=== PATIENT | female | born 1995 | race African-American/Black ===

== ENCOUNTER 2018-09-15 09:49 | Emergency (ER) | payer SELFPAY ==
[~2018-09-15] VITALS: Ht 157.5 cm; Wt 68.0 kg
[2018-09-15 10:16] VITALS: BP 137/88
[2018-09-15 10:19] LABS: BILIRUBIN,URINE NEGATIVE (NEG); CLARITY,URINE CLEAR; COLOR,URINE YELLOW; NITRITE,URINE NEGATIVE (NEG); PH,URINE 7.5; PROTEIN,URINE NEGATIVE (NEG-TRACE)
[2018-09-15 10:26] LABS: BARBITURATES NEG (NEG); BENZODIAZEPINES NEG (NEG); CANNABINOIDS POS (NEG); COCAINE NEG (NEG); METHADONE NEG (NEG); OPIATES NEG (NEG); PHENCYCLIDINE NEG (NEG)
[2018-09-15 10:31] LABS: BACTERIA,URINE MODERATE /HPF (0-FEW); RBC,URINE TNTC /HPF (0-2); SQUAMOUS EPITHELIAL CELL,UR MANY /LPF
[2018-09-15 10:37] LABS: AMPHETAMINE/METHAMPHETAMINE NEG (NEG)
--- NOTE | 2018-09-15 10:37 | PHYS DOC ---
Past Medical History Past Medical History: No Pertinent History Past Surgical History: Other Additional Past Surgical Histo: LEFT KNEE Alcohol Use: Rarely Drug Use: Marijuana Adult General Chief Complaint Chief Complaint: SUICDAL IDEATION [facility] HPI Patient is a 23-year-old female who presents with complaint of suicidal thoughts for the last couple of days. Patient indicates that she has been thinking about flipping her car to take her life. Patient does admit to history of suicide attempt having taken allergy pills in the past. Patient states that she has had a lot of stress in her family recently which is what she believes the cause of her symptoms are. Patient states that she has not done anything to harm herself at this point. She denies any chest pain or shortness of breath. She also denies any abdominal pain, nausea or vomiting. Review of Systems Review of Systems Constitutional: Denies fever or chills [] Respiratory: Denies cough or shortness of breath [] Cardiovascular: No additional information not addressed in HPI [] GI: Denies abdominal pain, nausea, vomiting or diarrhea [] Neurologic: Denies headache, focal weakness or sensory changes [] Psychiatric: Complains of depression with suicidal ideation [] All other systems were reviewed and found to be within normal limits, except as documented in this note. Current Medications Current Medications Current Medications Medications (Trade) Dose Ordered Sig/Rm Start Time Stop Time Status Last Admin Dose Admin Ibuprofen (Motrin) 600 mg 1X ONCE 09/15/18 11:45 09/15/18 11:46 DC 09/15/18 11:50 600 MG Allergies Allergies Allergies Coded Allergies Type Severity Reaction Last Updated Verified peanut Allergy Severe THROAT SWELLING 09/15/18 Yes Physical Exam Physical Exam Constitutional: Well developed, well nourished, no acute distress, non-toxic appearance. [] HENT: Normocephalic, atraumatic, bilateral external ears normal, oropharynx moist, no oral exudates, nose normal. [] Eyes: PERRLA, EOMI, conjunctiva normal, no discharge. [] Neck: Normal range of motion, no tenderness, supple, no stridor. [] Cardiovascular: Regular rate and rhythm [] Lungs & Thorax: Bilateral breath sounds clear to auscultation [] Abdomen: Bowel sounds normal, soft, no tenderness. [] Skin: Warm, dry, no erythema, no rash. [] Extremities: No tenderness, no cyanosis, no clubbing, ROM intact, no edema. [] Neurologic: Alert and oriented X 3, no focal deficits noted. [] Psychologic: Mildly flattened affect with depressed mood. [] Current Patient Data Vital Signs Vital Signs Date Time Temp Pulse Resp B/P (MAP) Pulse Ox O2 Delivery O2 Flow Rate FiO2 09/15/18 10:16 99.0 82 16 137/88 (104) 100 Room Air 99.0 Lab Values Laboratory Tests Test 09/15/18 10:10 09/15/18 10:12 09/15/18 10:40 Urine Collection Type Clean catch Urine Color Yellow Urine Clarity Clear Urine pH 7.5 Urine Specific [place] 1.025 Urine Protein Negative mg/dL (NEG-TRACE) Urine Glucose (UA) Negative mg/dL (NEG) Urine Ketones (Stick) Negative mg/dL (NEG) Urine Blood Large (NEG) Urine Nitrite Negative (NEG) Urine Bilirubin Negative (NEG) Urine Urobilinogen Dipstick 1.0 mg/dL (0.2 mg/dL) Urine Leukocyte Esterase Negative (NEG) Urine RBC Tntc /HPF (0-2) Urine WBC 1-4 /HPF (0-4) Urine Squamous Epithelial Cells Many /LPF Urine Bacteria Moderate /HPF (0-FEW) Urine Mucus Marked /LPF Urine Opiates Screen Neg (NEG) Urine Methadone Screen Neg (NEG) Urine Barbiturates Neg (NEG) Urine Phencyclidine Screen Neg (NEG) Urine Amphetamine/Methamphetamine Neg (NEG) Urine Benzodiazepines Screen Neg (NEG) Urine Cocaine Screen Neg (NEG) Urine Cannabinoids Screen Pos (NEG) Urine Ethyl Alcohol Neg (NEG) POC Urine HCG, Qualitative Hcg negative (Negative) White Blood Count 9.1 x10^3/uL (4.0-11.0) Red Blood Count 4.16 x10^6/uL (3.50-5.40) Hemoglobin 11.9 g/dL (12.0-15.5) L Hematocrit 36.9 % (36.0-47.0) Mean Corpuscular Volume 89 fL (79-100) Mean Corpuscular Hemoglobin 29 pg (25-35) Mean Corpuscular Hemoglobin Concent 32 g/dL (31-37) Red Cell Distribution Width 14.3 % (11.5-14.5) Platelet Count 391 x10^3/uL (140-400) Neutrophils (%) (Auto) 72 % (31-73) Lymphocytes (%) (Auto) 22 % (24-48) L Monocytes (%) (Auto) 5 % (0-9) Eosinophils (%) (Auto) 1 % (0-3) Basophils (%) (Auto) 1 % (0-3) Neutrophils # (Auto) 6.5 x10^3uL (1.8-7.7) Lymphocytes # (Auto) 2.0 x10^3/uL (1.0-4.8) Monocytes # (Auto) 0.4 x10^3/uL (0.0-1.1) Eosinophils # (Auto) 0.1 x10^3/uL (0.0-0.7) Basophils # (Auto) 0.0 x10^3/uL (0.0-0.2) Sodium Level 140 mmol/L (136-145) Potassium Level 3.5 mmol/L (3.5-5.1) Chloride Level 102 mmol/L (98-107) Carbon Dioxide Level 26 mmol/L (21-32) Anion Gap 12 (6-14) Blood Urea Nitrogen 10 mg/dL (7-20) Creatinine 0.8 mg/dL (0.6-1.0) Estimated GFR (Cockcroft-Gault) 108.5 BUN/Creatinine Ratio 13 (6-20) Glucose Level 82 mg/dL (70-99) Calcium Level 8.8 mg/dL (8.5-10.1) Total Bilirubin 0.3 mg/dL (0.2-1.0) Aspartate Amino Transferase (AST) 20 U/L (15-37) Alanine Aminotransferase (ALT) 18 U/L (14-59) Alkaline Phosphatase 51 U/L (46-116) Total Protein 8.3 g/dL (6.4-8.2) H Albumin 4.0 g/dL (3.4-5.0) Albumin/Globulin Ratio 0.9 (1.0-1.7) L Salicylates Level < 2.8 mg/dL (2.8-20.0) L Salicylate Last Dose Date Unknown Salicylate Last Dose Time Unknown Acetaminophen Level < 2 mcg/ml (10-30) L Acetaminophen Last Dose Date Unknown Acetaminophen Last Dose Time Unknown Ethyl Alcohol Level < 10 mg/dL (0-10) Laboratory Tests 09/15/18 10:40 Laboratory Tests 09/15/18 10:40 EKG EKG [] Radiology/Procedures Radiology/Procedures [] Course & Med Decision Making Course & Med Decision Making Pertinent Labs and Imaging studies reviewed. (See chart for details) A sugar moved to room upon arrival was evaluated by ER staff after which mental health workup was initiated. Workup has returned unremarkable and patient is medically cleared. Patient was seen by PAT team and patient has been accepted at [facility]. Mary Jane Disclaimer Dragon Disclaimer This electronic medical record was generated, in whole or in part, using a voice recognition dictation system. Departure Departure Impression: Primary Impression: Suicidal ideation Additional Impression: Depression Disposition: 01 HOME, SELF-CARE Condition: STABLE Referrals: CORNELIA ELIZALDE (PCP) Patient Instructions: Depression, Adult, Suicidal Feelings, How to Help Yourself Problem Qualifiers Additional Impression: Depression Depression Type: unspecified Qualified Codes: F32.9 - Major depressive disorder, single episode, unspecified EVAN PINON Jr. DO Sep 15, 2018 10:37
[2018-09-15 10:50] LABS: BASO % 1 % (0-3); EOS # 0.1 x10^3/uL (0.0-0.7); EOS % 1 % (0-3); HEMATOCRIT 36.9 % (36.0-47.0); HEMOGLOBIN 11.9 g/dL (12.0-15.5); LYMPH % 22 % (24-48); MEAN CORPUSCULAR HEMOGLOBIN 29 pg (25-35); MEAN CORPUSCULAR HGB CONC 32 g/dL (31-37); MEAN CORPUSCULAR VOLUME 89 fL (79-100); MONO # 0.4 x10^3/uL (0.0-1.1); MONO % 5 % (0-9); NEUT # 6.5 x10^3uL (1.8-7.7); NEUT % 72 % (31-73); PLATELET COUNT 391 x10^3/uL (140-400); RED BLOOD COUNT 4.16 x10^6/uL (3.50-5.40); RED CELL DISTRIBUTION WIDTH 14.3 % (11.5-14.5); WHITE BLOOD COUNT 9.1 x10^3/uL (4.0-11.0)
[2018-09-15 10:57] LABS: CALCIUM 8.8 mg/dL (8.5-10.1); CREATININE 0.8 mg/dL (0.6-1.0); GFR 108.5; POTASSIUM 3.5 mmol/L (3.5-5.1)
[2018-09-15 11:00] LABS: SALIC < 2.8 mg/dL (2.8-20.0)
[2018-09-15 11:01] LABS: ACETAMIN < 2 mcg/ml (10-30); ETHANOL < 10 mg/dL (0-10)
[2018-09-15 11:02] LABS: ALBUMIN/GLOBULIN RATIO 0.9 (1.0-1.7); TOTAL BILIRUBIN 0.3 mg/dL (0.2-1.0); TOTAL PROTEIN 8.3 g/dL (6.4-8.2)
[2018-09-15] MEDS ORDERED: IBUPROFEN 600 MG TABLET. PO ONE (11:45)
== END 2018-09-15 13:05 | disposition home or self-care (01) ==
LOC: ER 09:49
DX: R45.851 Suicidal ideations (principal); F32.9 Major depressive disorder, single episode, unspecified; Z91.5 Personal history of self-harm; Z91.010 Allergy to peanuts
CPT/HCPCS: 36415; 80053; 80307; 80329; 81001; 81025; 85025; 87086; 99284; G0480; G6039